=== PATIENT | male | born 1970 | race Caucasian/White ===

== ENCOUNTER 2022-11-24 02:16 | Day surgery (SDC) | payer OTHER, SELFPAY ==
[2022-11-13 15:20] VITALS: BMI 31.1
--- NOTE | 2022-11-13 15:23 | PC.NURSE ---
Report to the Outpatient Waiting Room, entrance under the green pavilion located off [facility], at time 0830 on date 11/24/22. Planned Procedure Time: 1030. Time changes happen often and if your time is changed the preop area will call you the afternoon before. - You and your visitor will be asked to self-screen and do not enter if you have any COVID symptoms. - Only one visitor is requested with a max of two and NO children visitors are allowed at this time. - The patient visitor may be requested to leave or wait in car when not with patient due to distancing restrictions. - A mask is optional within the hospital at this time. Patients may have clear liquids (water, carbonated beverages, clear teas, apple juice) until 3 hours prior to surgery with a maximum of 20 ounces. - No food from midnight until time of surgery Take the following medications with a SIP of water the morning of surgery: PROPRANOLOL DO NOT STOP ANY OF YOUR OTHER PRESCRIPTION MEDICATIONS PRIOR TO SURGERY EXCEPT THE FOLLOWING Medications to discontinue per physician: VITAMINS/SUPPLEMENTS Date to take last dose: 11/20/22 Please no make-up, nail burmese, hairspray, perfume, deodorant, or body powder the day of surgery. No jewelry (including any body piercings) or valuables the day of surgery, leave them at home. Please take a shower or bath the night before, or the morning of, surgery with an antibacterial soap. Wear comfortable, loose fitting clothing. - Jewelry must be removed prior to entering the operating room. Rings and piercings that are not removed may be cut off. - The hospital will not accept responsibility for valuables. - Please leave all valuables, including medications, at home the day of surgery. If you are going home after surgery, a licensed route delivery driver must drive you home. - NO public transportation without another adult if you receive anesthesia. - We recommend that an adult stay with you for 24 hours following discharge. - We also recommend that you do not drive, make important decision, drink alcoholic beverages, or take any drugs that were not prescribed by your health care provider for at least 24 hours after your discharge time. Follow any additional instructions given to you from your surgeon. If you or anyone in your household have experienced Covid symptoms in the past week, please notify your surgeon or the nurse liaison at the phone number below for possible testing. Telephone instructions given to PT Kamran BHAT and asked if any additional questions and then verbalized understanding. Patient advised to call surgeon office or pre surgery nurse liaison [phone] if any additional questions.
--- NOTE | 2022-11-23 17:39 | PM.IMHP ---
H&P: HPI History of Present Illness Date/Time: 11/23/22 17:39 Chief Complaint: scalp cyst 2 cm Narrative: planned surgical procedure Review of Systems Review of Systems: All systems reviewed & are unremarkable except as noted in HPI and below PMFSH Past Medical History Medical History (Updated 10/11/22 @ 17:04 by Yanet Lee RN) BPH (benign prostatic hyperplasia) Family history of coronary artery disease Hypogonadism in male Left elbow pain Migraine Surgical History Surgical History Vasectomy planned Family History Family History Father Cancer Heart attack Sibling SBO (small bowel obstruction) Alcoholism Grandparent Hypertension Heart disease Legal Guardian Diabetes mellitus Other Family history of gout Social History Social History (Updated 09/11/22 @ 14:14 by Clarice Mustafa PA-C) Smoking status: Never smoker Smokeless tobacco user: chewing tobacco Alcohol intake: never Alcohol use details: rarely Substance use: never Substance use type: does not use Living arrangements: with family 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 Gender identity (if verbalized by the patient): Male Spiritual care concerns: No Meds Home Medications and Allergies Home Medications Medication Instructions Recorded Confirmed Type propranolol 160 mg capsule,24 160 mg PO DAILY #90 caps 09/11/22 11/13/22 Rx hr,extended release sumatriptan succinate 100 mg 100 mg PO .COMPLEX #18 tabs 09/11/22 11/13/22 Rx tablet (Imitrex) folic acid 1 mg tablet 1 mg PO DAILY #90 tabs 11/10/22 11/13/22 Rx magnesium 250 mg tablet 250 mg PO DAILY 11/13/22 11/13/22 History Allergies Allergy/AdvReac Type Severity Reaction Status Date / Time topiramate [From Topamax] AdvReac Irritable Verified 11/13/22 15:26 Exam Narrative: proximally 2 cm mophead trimmer and wrapper is vertex Assessment and Plan Assessment and plan (1) Mass of scalp: Code(s): R22.0 - Localized swelling, mass and lump, head Status: Acute Assessment and Plan: plan OR excision of scalp cyst LMA okay. Risks discussed including bleeding infection need for drain placement need for drainage of postoperative somewhat [place] of 1 present. Need for further procedures scar recurrence of cyst patient voiced understanding and agreed.
--- NOTE | 2022-11-24 07:13 | WPDHPUPDATE1 ---
History and Physical Update Update Date/Time: 11/24/22 07:13 History and Physical has been reviewed, including an updated exam of the patient. There are NO changes in the patient's condition. Risks, benefits, and alternatives have been discussed and questions answered. Patient agrees to proceed with procedure.
[2022-11-24 07:45] VITALS: BP 123/72; PULSE 46; RESP 16; TEMP 36.4; O2SAT 100
[2022-11-24] MEDS: LACTATED RINGERS 1,000 ML 30 ML IV CONT (08:12)
--- NOTE | 2022-11-24 08:28 | WPDANESEPPF ---
Anes - Initial Pre Proc Eval Procedure: Operation Date: 11/24/22 09:30 Proposed Procedures p Excision Scalp Cyst - Zeus Brown MD Date/Time: 11/24/22 08:28 Surgeon: Zeus Brown MD Pre Op Diagnosis: scalp cyst Patient Data Age: 52 Gender: M Height: 1.78 m Weight: 98.3 kg Last Vital Signs Temp 36.4 C L 11/24/22 07:45 Pulse 46 L 11/24/22 07:45 Resp 16 11/24/22 07:45 BP 123/72 11/24/22 07:45 Pulse Ox 100 11/24/22 07:45 O2 Del Method Room Air 11/24/22 07:45 Allergies Allergy/AdvReac Type Severity Reaction Status Date / Time topiramate [From Topamax] AdvReac Irritable Verified 11/24/22 08:17 Home Medications Medication Instructions Recorded Confirmed Type propranolol 160 mg capsule,24 160 mg PO DAILY #90 caps 09/11/22 11/13/22 Rx hr,extended release sumatriptan succinate 100 mg 100 mg PO .COMPLEX #18 tabs 09/11/22 11/13/22 Rx tablet (Imitrex) folic acid 1 mg tablet 1 mg PO DAILY #90 tabs 11/10/22 11/13/22 Rx magnesium 250 mg tablet 250 mg PO DAILY 11/13/22 11/13/22 History Patient hx anesthesia problems: none Family hx anesthesia problems: none Results Review: All pre-operative results and documents have been reviewed as part of the pre-operative evaluation. [facility] Past Medical History Medical History BPH (benign prostatic hyperplasia) Family history of coronary artery disease Hypogonadism in male Left elbow pain Migraine Surgical History Surgical History Vasectomy planned Family History Family History Father Cancer Heart attack Sibling SBO (small bowel obstruction) Alcoholism Grandparent Hypertension Heart disease Legal Guardian Diabetes mellitus Other Family history of gout Social History Social History Smoking status: Never smoker Smokeless tobacco user: chewing tobacco Alcohol intake: never Alcohol use details: rarely Substance use: never Substance use type: does not use Living arrangements: with family 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 Informed Consent: The patient's anesthetic plan and its attendant risks and benefits were discussed with the patient/family/POA. Questions were solicited and answers provided to the satisfaction of the patient/family/POA.
[2022-11-24] MEDS: ONDANSETRON INJ 4 MG/2 ML VIAL IV PUSH (08:38)
[2022-11-24] MEDS: FAMOTIDINE 20 MG/2 ML VIAL IV PUSH (08:38)
[2022-11-24] MEDS: ceFAZolin SODIUM 1 GM VIAL 2 GM IV PUSH (09:38)
[2022-11-24] MEDS: LIDO 1%/EPINEPHRINE 1:100,000 20 ML VIAL 10 ML INFILTRATE (09:49)
[2022-11-24 10:03] VITALS: BP 110/67; PULSE 50; RESP 12; TEMP 36.2; O2SAT 100
--- NOTE | 2022-11-24 10:12 | P.OP_ITS ---
Procedure Note - Detailed Date of Procedure 11/24/22 Pre-op Diagnosis scalp cyst about 3 cm Post-op Diagnosis Same Procedure Performed excision of scalp cyst Surgeon Zeus Brown MD Anesthesia General ( LMA) Indications see above Findings approximately 3 cm skin cyst consistent with epidermoid inclusion cyst Description of Procedure patient identified consent verified. Patient brought operating. Time-out pe rformed. General anesthesia induced LMA secured. Patient prepped draped position 2nd time-out performed. 0.2 cc 1% lidocaine 1 100,000 parts epinephrine injected deep to pre drawn surgical incision following the scalp relaxed skin tension line. Fifteen blade utilized to make about 4 cm incision. 3 cm cyst then dissected out blunt dissection. Cyst was ruptured with the entire cyst was removed bipolar cautery at a setting of 5 than 10 utilized to control any bleeding. Wound then copiously irrigated with sterile normal saline. 2 3-0 Vicryl placed skin edges perfectly approximated. Skin glue place skin glue placed over the incision on the skin. Estimated Blood Loss 2 Drains No Packing No Pathology Yes Complications No immediate complications Condition Stable Disposition PACU [facility] Billing Surgery - Charge Forward: Surgery Billing
[2022-11-24 10:15] VITALS: BP 121/69; PULSE 61; RESP 12; O2SAT 100
[2022-11-24 10:30] VITALS: BP 123/71; PULSE 48; RESP 14; O2SAT 100
[2022-11-24 10:46] VITALS: BP 124/76; PULSE 48; RESP 14
[2022-11-24 11:15] VITALS: BP 133/76; PULSE 55; RESP 14
[2022-11-24] MEDS: oxyCODONE HCL (*CRX) 5 MG TAB IR PO (11:26)
== END 2022-11-24 11:30 | disposition home or self-care (01) ==
PROVIDERS: PCP Physician Assistant Medical; Visit Provider Otolaryngology
PROC: (CPT 11423; principal; 2022-11-24 09:30)
DX: L72.12 Trichodermal cyst (principal); E66.9 Obesity, unspecified; Z68.31 Body mass index [BMI] 31.0-31.9, adult
CPT/HCPCS: 11423; 88305; A9270; J0690; J1100; J2250; J2405; J2704; J3010; J7120